=== PATIENT | female | born 1990 | race African-American/Black ===

== ENCOUNTER 2018-01-29 14:23 | Emergency (ER) | payer SELFPAY ==
[2018-01-29 14:39] VITALS: BP 137/81; PULSE 96; RESP 16; TEMP 98.4; O2SAT 97
--- NOTE | 2018-01-29 14:48 | EDPHY ---
H & P Time Seen by Provider: 01/29/18 14:41 HPI/ROS: CHIEF COMPLAINT: Right hand injury HISTORY OF PRESENT ILLNESS: 28-year-old [id number] female arrives via private vehicle complaining of acute right 5th metacarpal pain after she slipped on the ice impacted her 5th metacarpal against the edge of occur. Intact skin. No paresthesia. Reproducible pain with palpation and range of motion. PHYSICAL EXAM (Prior to examination, patient consented to physical exam, hands were washed and my usual and customary physical exam procedures followed) 1) GENERAL: Well-developed, well-nourished, alert and oriented. Appears to be in no acute distress. 2) HEAD: Normocephalic 3) HEENT: Pupils equal, round, reactive to light bilaterally. 4) LUNGS: Breathing comfortably. 5) MUSCULOSKELETAL: Tender to palpation distal 5th metacarpal. No shortening no malrotation. Normal cascading of digits. Soft compartments. Normal coloration. Soft compartments 6) SKIN: Intact 7) VASCULAR: pulses and cap refill present are brisk 8) NEUROLOGIC: Radial, ulnar, median nerve function intact with no deficits appreciated on exam DIFFERENTIAL DIAGNOSIS: in no particular order including but not limited to fracture, sprain, compartment syndrome Procedure: Splint In Ortho Glass ulnar gutter splint was applied by ER relay technician. After application of the splint I returned and re-examined the patient. The splint was adequately immobilizing the joint and distal to the splint the patient's circulation and sensation were intact. Patient shows no signs of compartment syndrome. Was given orthopedic precautions. Smoking Status: Never smoked Constitutional: Initial Vital Signs Temperature (C) 36.9 C 01/29/18 14:37 Heart Rate 96 01/29/18 14:37 Respiratory Rate 16 01/29/18 14:37 Blood Pressure 137/81 H 01/29/18 14:37 O2 Sat (%) 97 01/29/18 14:37 O2 Delivery Mode Room Air Allergies/Adverse Reactions: codeine Allergy (Verified 01/29/18 14:36) MDM/Departure - MDM Medications Given: Discontinued Medications Ibuprofen (Motrin) 600 mg PO EDNOW ONE Stop: 01/29/18 14:55 Last Admin: 01/29/18 14:57 Dose: 600 mg ED Course/Re-evaluation: Care of patient under supervision of secondary supervising physician Dr Morejon . Re-evaluation with serial exams. Discussed her imaging results showing a 5th metacarpal fracture, closed. She has been splinted. She will need follow-up with on-call orthopedics Dr. Kiel Zayas this week (today is Tuesday). The meantime given analgesia, usual and customary orthopedic precautions and instructions. - Depart Disposition: Home, Routine, Self-Care Clinical Impression: Fall from slipping on ice Qualifiers: Encounter type: initial encounter Qualified Code(s): W00.9XXA - Unspecified fall due to ice and snow, initial encounter Boxers fracture Qualifiers: Encounter type: initial encounter Fracture type: closed Qualified Code(s): S62.339A - Displaced fracture of neck of unspecified metacarpal bone, initial encounter for closed fracture Condition: Good Instructions: Hand Fracture (ED), Boxer Fracture (ED) Additional Instructions: Return to the ER immediately if you experience discoloration, have worsening pain, numbness, tingling, or any other symptoms that concern you. If you received x-rays in the emergency department today, be advised, that ligamentous , tendon, muscular, and other non-bony injury cannot be fully ruled out. Try to keep your affected extremity elevated above the level of your chest, and keep cold packs on the affected area, for the next 48 hours. Referrals: Kiel Zayas MD [Medical Doctor] - 2-3 days, call for appt.
[2018-01-29] MEDS ORDERED: IBUPROFEN 600 MG TAB PO ONE ×2 (14:52→14:54)
== END 2018-01-29 15:45 | disposition home or self-care (01) ==
PROC: 2W3EX1Z Immobilization of Right Hand using Splint (ICD-10-PCS; principal; 2018-01-29)
DX: S62.336A Displaced fracture of neck of fifth metacarpal bone, right hand, initial encounter for closed fracture (principal); W00.9XXA Unspecified fall due to ice and snow, initial encounter